=== PATIENT | male | born 1945 | race Caucasian/White ===

== ENCOUNTER 2024-11-13 11:27 | Emergency (ER) | payer MEDICARE ==
[2024-11-13 12:09] LABS: #Basophils 0.04 10x3/uL (0.0-0.2); #Eosinophils 0.22 10x3/uL (0.0-0.5); #Monocytes 1.15 10x3/uL (0.0-1.1); %Basophils 0.4 % (0.0-2.0); %Eosinophils 2.4 % (0.0-6.0); %Lymphocytes 21.3 % (18.0-47.0); %Monocytes 12.3 % (0.0-10.0); %Neutrophils 63.2 % (40.0-75.0); Hematocrit 33.5 % (38.8-50.0); Mean Corpuscular HGB CONC 32.8 g/dL (32.0-36.0); Mean Corpuscular Hemoglobin 32.9 pg (27.0-33.0); Mean Corpuscular Volume 100.3 fL (81.2-95.1); Mean Platelet Volume 10.3 fL (7.4-10.4); Platelet Count 175 10x3/uL (150-450); RBC Distribution Width 13.2 % (11.5-14.5); Red Blood Cell (RBC) Count 3.34 10x6/uL (4.32-5.72); White Blood Cell (WBC) Count 9.34 10x3/uL (3.5-10.5)
[2024-11-13 12:24] LABS: INR-International Normal Ratio 1.2; Prothrombin Time 13.3 sec (9.5-12.1)
[2024-11-13 12:40] LABS: ALT (SGPT) 13 U/L (8-55); AST (SGOT) 16 U/L (5-34); Albumin 3.3 g/dL (3.4-4.8); Alkaline Phosphatase 80 U/L (40-110); Anion Gap 12 mmol/L (10-20); BUN (Urea Nitrogen) 16 mg/dL (8.4-25.7); Bilirubin, Total 1.2 mg/dL (0.2-1.2); Calc. Creatinine Clearance 0 mL/min (70-130); Calcium 9.9 mg/dL (7.8-10.44); Carbon Dioxide 24 mmol/L (23-31); Chloride 106 mmol/L (98-107); Estimated GFR 65; Globulin 3.4 g/dL (2.4-3.5); Glucose 95 mg/dL (83-110); Protein, Total 6.7 g/dL (5.8-8.1); Sodium 138 mmol/L (136-145)
[2024-11-13] MEDS ORDERED: Acetaminophen 500 MG TAB ONE (13:24)
[2024-11-13] MEDS ORDERED: Lidocaine 4% Patch ONE (13:24)
== END 2024-11-13 13:39 | disposition home or self-care (01) ==
LOC: CSHERS 11:27
DX: S30.0XXA Contusion of lower back and pelvis, initial encounter (principal); W18.30XA Fall on same level, unspecified, initial encounter; Y93.89 Activity, other specified
CPT/HCPCS: 36415; 70450; 71045; 72170; 80053; 83735; 85025; 85610; 85730